=== PATIENT | male | born 1950 | race Caucasian/White ===

== ENCOUNTER → 2017-04-27 | Outpatient (CLI) | payer OTHER ==
[~2017-04-27] MED LIST: AMLO-104 PO; AMLO-99 PO; AMOX875T60 PO; ASPI-1441 PO; ASPI-1471 PO; ASPI81TA86 PO; ATEN-1 PO; ATOR20TA65 PO; BLOO-292; BLOO-960 MC; CARV25TA78 PO; DIOVAN HCT; GLIM2TAB43 PO; HYDR-2966 PO; IBUP-1671 PO; LANC-165; LEVO50TA86 PO; LOSA50TA72 PO; MECL-111 PO; NORVASC; OMEP-218 PO; SIMV-49 PO; SPIR25TA76 PO; VALS160T2 PO; ZOCOR
[2017-04-27 14:45] LABS: PLATELET COUNT, AUTOMATED 196 K/uL (150-450)
--- NOTE | 2017-04-28 08:15 | EKG ---
FACILITY: [facility] - [place] PATIENT NAME: ANAT FARRIS : [id number] MR: [id number] V: [id number] EXAM DATE: ORDERING PHYSICIAN: VIELKA LARSON TECHNOLOGIST: JANEL Test Reason : HYPERTENSION Blood Pressure : / mmHG Vent. Rate : 079 BPM Atrial Rate : 079 BPM P-R Int : 180 ms QRS Dur : 118 ms QT Int : 424 ms P-R-T Axes : 068 -57 083 degrees QTc Int : 486 ms Normal sinus rhythm Left axis deviation Left ventricular hypertrophy with QRS widening and repolarization abnormality Anteroseptal infarct (cited on or before 05-JUN-2016) Abnormal ECG When compared with ECG of 05-JUN-2016 09:46, No significant change was found Referred By: MARSHA Confirmed By:
== END ==
LOC: LAB 14:25
PROVIDERS: ATTEND Internal Medicine
DX: Z12.5 Encounter for screening for malignant neoplasm of prostate (principal); I16.0 Hypertensive urgency; I10 Essential (primary) hypertension; R73.9 Hyperglycemia, unspecified; R94.31 Abnormal electrocardiogram [ECG] [EKG]; I51.7 Cardiomegaly
CPT/HCPCS: 36415; 82040; 82247; 82310; 82374; 82435; 82465; 82565; 82947; 83036; 83718; 84075; 84132; 84153; 84155; 84295; 84443; 84450; 84460; 84478; 84520; 84550; 85025

== ENCOUNTER 2017-05-16 18:06 | Observation (INO) | payer OTHER ==
[~2017-05-16] VITALS: Ht 172.7 cm; Wt 89.4 kg
[~2017-05-16 18:06] MED LIST changes: -AMOX875T60 PO; -ASPI81TA86 PO
--- NOTE | 2017-05-16 18:19 | ER Report ---
History and Physical Time Seen By MD: 18:18 HPI/ROS CHIEF COMPLAINT: Left tooth pain, chest pain HISTORY OF PRESENT ILLNESS: 67-year-old male patient presents to emergency room with complaint of left lower molar pain. States this been going on for the past several days. States he's not been able to eat on the left side of his mouth. Patient states that he is also had a fever today up of 101. Starting at noon he developed chest pain. He states that the pain was substernal slightly to the right. He states that nothing seems to make the pain better or worse. He states that he's not had any nausea, vomiting or diarrhea. He denies having any shortness of breath. He states he is not taking any medication for his chest pain nor for his dental pain. REVIEW OF SYSTEMS: Respiratory: No cough, no dyspnea. Cardiovascular: As noted above Gastrointestinal: No vomiting, no abdominal pain. Musculoskeletal: No back pain. Allergies: Coded Allergies: codeine (Verified Adverse Reaction, Mild, DIZZINESS, 05/16/17) Home Meds Active Scripts Amlodipine Besylate (AMLODIPINE BESYLATE) 10 Mg Tablet, 1 TAB PO QDAY, #30 TAB 6 Refills Prov:VIELKA LARSON MD 05/12/17 Carvedilol (CARVEDILOL) 25 Mg Tablet, 1 TAB PO BID, #60 TAB 3 Refills Prov:VIELKA LARSON MD 04/30/17 Hydrochlorothiazide (HYDROCHLOROTHIAZIDE) 25 Mg Tablet, 1 TAB PO QDAY, #30 TAB 3 Refills Prov:VIELKA LARSON MD 04/30/17 True Metrix Glucose Test Strip (True Metrix Glucose Test Strip) 1 Each Strip, BOX DAILY, #1 5 Refills patient is to test his blood sugards once a day. patient is to choose his diabetic supplies of his choice. Prov:VIELKA LARSON MD 04/28/17 Lancets (Blood Lancets) 30 Gauge Each, BOX DAILY, #1 5 Refills patient to check his blood sugars once a day. patient to pick his diabetic supplies of his choice. Prov:VIELKA LARSON MD 04/28/17 Blood-Glucose Meter (BLOOD GLUCOSE METER) 1 Each Each, EACH MC DAILY, #1 Patient to check his blood sugars once a day Prov:VIELKA LARSON MD 04/28/17 Glimepiride (GLIMEPIRIDE) 2 Mg Tablet, 2 MG PO BID, #60 TAB 3 Refills Prov:VIELKA LARSON MD 04/28/17 Atorvastatin Calcium (ATORVASTATIN CALCIUM) 20 Mg Tablet, 1 TAB PO QDAY, #30 TAB 3 Refills Prov:VIELKA LARSON MD 04/28/17 Valsartan (Valsartan) 160 Mg Tablet, 160 MG PO BID, #60 TAB 3 Refills Prov:VIELKA LARSON MD 04/27/17 Past Medical/Surgical History Patient has a past medical history of hypertension, sinus problems. Patient denies any surgical history. Reviewed Nurses Notes: Yes Hx Smoking: No Smoking Status: Never Smoker Constitutional Vital Sign - Last 24 Hours 05/16/17 05/16/17 05/16/17 05/16/17 18:10 18:23 18:26 18:31 Temp 99.9 Pulse 108 107 107 Resp 16 9 B/P (MAP) 187/107 187/107 (133) Pulse Ox 91 90 O2 Delivery Room Air 05/16/17 05/16/17 05/16/17 05/16/17 18:36 18:39 18:41 18:42 Pulse 108 114 Resp 12 18 B/P (MAP) 190/106 (134) 163/106 (125) Pulse Ox 89 91 05/16/17 05/16/17 05/16/17 05/16/17 18:46 18:51 18:56 19:01 Pulse 110 119 121 Resp 21 26 14 14 Pulse Ox 90 90 05/16/17 05/16/17 05/16/17 05/16/17 19:30 19:36 19:41 19:56 Pulse 113 111 115 Resp 12 7 29 B/P (MAP) 149/84 (105) 05/16/17 05/16/17 05/16/17 05/16/17 20:00 20:11 20:26 20:30 Pulse 110 109 Resp 20 15 B/P (MAP) 153/90 (111) 148/85 (106) 05/16/17 20:41 Pulse 112 Resp 15 Intake and Output 05/16/17 05/16/17 05/17/17 15:00 23:00 07:00 Intake Total 100 ml Balance 100 ml Physical Exam General Appearance: The patient is alert, has no immediate need for airway protection and no current signs of toxicity. ENT: Tympanic membranes are pearly-alvarez, auditory canals are patent, mixed mucous membranes are moist. Patient does have swelling and erythema around the left lower molar, tooth #17. Respiratory: Chest is non tender, lungs are clear to auscultation. Cardiac: regular rate and rhythm Gastrointestinal: Abdomen is soft and non tender, no masses, bowel sounds normal. Musculoskeletal: Neck: Neck is supple and non tender. Extremities have full range of motion and are non tender. Skin: No rashes or lesions. DIFFERENTIAL DIAGNOSIS: After history and physical exam differential diagnosis was considered for chest pain including but not limited to myocardial ischemia, pericarditis pulmonary embolus, chest wall pain, pleural inflammation and pulmonary infectious causes. Included in differential is also dental abscess, dental pain. Medical Decision Making Data Points Result Diagram: 05/16/17 1823 05/16/17 1823 Laboratory Hematology Test 05/16/17 00:00 05/16/17 18:23 05/16/17 18:40 05/16/17 21:47 Magnesium Level 1.8 mg/dl (1.7-2.2) Red Blood Count 6.76 M/uL (4.00-5.60) Mean Corpuscular Volume 83.0 fL (80.0-96.0) Mean Corpuscular Hemoglobin 28.1 pg (26.0-33.0) Mean Corpuscular Hemoglobin Concent 33.9 g/dL (32.0-36.0) Red Cell Distribution Width 13.7 % (11.5-14.5) Mean Platelet Volume 9.9 fL (7.2-11.1) Neutrophils (%) (Auto) 93.9 % (39.4-72.5) Lymphocytes (%) (Auto) 2.8 % (17.6-49.6) Monocytes (%) (Auto) 2.3 % (4.1-12.4) Eosinophils (%) (Auto) 0.6 % (0.4-6.7) Basophils (%) (Auto) 0.4 % (0.3-1.4) Nucleated RBC Relative Count (auto) 0.6 /100WBC Neutrophils # (Auto) 15.6 K/uL (2.0-7.4) Lymphocytes # (Auto) 0.5 K/uL (1.3-3.6) Monocytes # (Auto) 0.4 K/uL (0.3-1.0) Eosinophils # (Auto) 0.1 K/uL (0.0-0.5) Basophils # (Auto) 0.1 K/uL (0.0-0.1) Nucleated RBC Absolute Count (auto) 0.09 K/uL Sodium Level 141 mmol/L (137-145) Potassium Level 2.6 mmol/L (3.5-5.0) Chloride Level 94 mmol/L (98-107) Carbon Dioxide Level 26 mmol/L (22-30) Blood Urea Nitrogen 21 mg/dl (9-21) Creatinine 1.50 mg/dl (0.66-1.25) Glomerular Filtration Rate Calc 46.7 Random Glucose 199 mg/dl (75-110) Calcium Level 10.3 mg/dl (8.4-10.2) Total Bilirubin 3.7 mg/dl (0.2-1.3) Aspartate Amino Transf (AST/SGOT) 26 U/L (0-35) Alanine Aminotransferase (ALT/SGPT) 43 U/L (0-56) Alkaline Phosphatase 99 U/L (0-126) Total Protein 9.1 gm/dl (6.3-8.2) Albumin 5.0 g/dl (3.5-5.0) Influenza Type A Antigen Negative (NEGATIVE) Influenza Type B Antigen Negative (NEGATIVE) Troponin I 0.086 ng/ml Chemistry Test 05/16/17 00:00 05/16/17 18:23 05/16/17 18:40 05/16/17 21:47 Magnesium Level 1.8 mg/dl (1.7-2.2) White Blood Count 16.7 k/uL (4.5-11.0) Red Blood Count 6.76 M/uL (4.00-5.60) Hemoglobin 19.0 g/dL (14.0-18.0) Hematocrit 56.1 % (42.0-52.0) Mean Corpuscular Volume 83.0 fL (80.0-96.0) Mean Corpuscular Hemoglobin 28.1 pg (26.0-33.0) Mean Corpuscular Hemoglobin Concent 33.9 g/dL (32.0-36.0) Red Cell Distribution Width 13.7 % (11.5-14.5) Platelet Count 248 K/uL (150-450) Mean Platelet Volume 9.9 fL (7.2-11.1) Neutrophils (%) (Auto) 93.9 % (39.4-72.5) Lymphocytes (%) (Auto) 2.8 % (17.6-49.6) Monocytes (%) (Auto) 2.3 % (4.1-12.4) Eosinophils (%) (Auto) 0.6 % (0.4-6.7) Basophils (%) (Auto) 0.4 % (0.3-1.4) Nucleated RBC Relative Count (auto) 0.6 /100WBC Neutrophils # (Auto) 15.6 K/uL (2.0-7.4) Lymphocytes # (Auto) 0.5 K/uL (1.3-3.6) Monocytes # (Auto) 0.4 K/uL (0.3-1.0) Eosinophils # (Auto) 0.1 K/uL (0.0-0.5) Basophils # (Auto) 0.1 K/uL (0.0-0.1) Nucleated RBC Absolute Count (auto) 0.09 K/uL Glomerular Filtration Rate Calc 46.7 Calcium Level 10.3 mg/dl (8.4-10.2) Total Bilirubin 3.7 mg/dl (0.2-1.3) Aspartate Amino Transf (AST/SGOT) 26 U/L (0-35) Alanine Aminotransferase (ALT/SGPT) 43 U/L (0-56) Alkaline Phosphatase 99 U/L (0-126) Total Protein 9.1 gm/dl (6.3-8.2) Albumin 5.0 g/dl (3.5-5.0) Influenza Type A Antigen Negative (NEGATIVE) Influenza Type B Antigen Negative (NEGATIVE) Troponin I 0.086 ng/ml EKG/Imaging EKG Interpretation 12 lead EKG: Rhythm: Sinus tachycardia, ventricular rate of 109 bpm. Jal: Left axis deviation QRS: normal ST segments: normal No marked difference when compared to EKG from 04/29/17. Imaging EXAMINATION: Chest 2 Views HISTORY: Chest pain. COMPARISON: 06/05/2016. FINDINGS: Bilateral nipple shadows are present, unchanged from prior. The lungs are clear. No focal consolidation or pleural effusion. No pneumothorax. Normal heart size and pulmonary vascularity. No acute osseous findings in the chest. Scattered degenerative changes along the spine. IMPRESSION: No evidence of acute cardiopulmonary disease. Report Dictated By: Juan Luis Nation MD at 05/16/2017 7:26 PM Report E-Signed By: Juan Luis Nation MD at 05/16/2017 7:28 PM ED Course/Re-evaluation ED Course Patient was admitted and examined, history and physical were obtained. Differential diagnoses were considered. On examination patient does have swelling and erythema around the left lower molar. A CBC, CMP, troponin, EKG, chest x-ray were done. Chest x-ray was unremarkable. EKG was unchanged when compared with April 29. Troponin was 0.023. Patient did have a potassium that was 2.6. We did give him a 20 mEq K rider here in the emergency room. That took one hour and after that we did go ahead and repeat his troponin. At that time his troponin had gone up to 0.086. I discussed the case with Dr. Arce, hospitalist who agreed to accept the patient for admission. With the patient who verbalized understanding and agreement. Decision to Disposition Date: May 16, 2017 Decision to Disposition Time: 22:44 Depart Departure Latest Vital Signs Vital Signs Date Time Temp Pulse Resp B/P (MAP) Pulse Ox O2 Delivery O2 Flow Rate FiO2 05/16/17 20:41 112 15 05/16/17 20:30 148/85 (106) 05/16/17 18:51 90 05/16/17 18:10 99.9 Room Air Impression: Primary Impression: Chest pain Additional Impression: Elevated troponin I level Condition: Condition Unchanged Disposition: Admitted from ER Referrals: VIELKA LARSON MD (PCP) Problem Qualifiers Primary Impression: Chest pain Chest pain type: other chest pain Qualified Codes: R07.89 - Other chest pain VALENTINE GOLD May 16, 2017 18:19
[2017-05-16] MEDS ORDERED: ASPIRIN 81 MG CHEW PO ONE (18:30)
[2017-05-16 18:38] LABS: PLATELET COUNT, AUTOMATED 248 K/uL (150-450)
--- NOTE | 2017-05-16 18:45 | EKG ---
FACILITY: [facility] PATIENT NAME: ANAT FARRIS : [id number] MR: [id number] V: [id number] EXAM DATE: ORDERING PHYSICIAN: VALENTINE GOLD TECHNOLOGIST: ROCIO Test Reason : CP Blood Pressure : / mmHG Vent. Rate : 109 BPM Atrial Rate : 109 BPM P-R Int : 128 ms QRS Dur : 120 ms QT Int : 402 ms P-R-T Axes : 052 -66 096 degrees QTc Int : 541 ms Sinus tachycardia Left axis deviation Left ventricular hypertrophy with QRS widening and repolarization abnormality Cannot rule out Septal infarct (cited on or before 05-JUN-2016) Abnormal ECG When compared with ECG of 27-APR-2017 15:01, ST now depressed in Lateral leads QT has lengthened Confirmed by ANAT HADLEY ([id number]) on 05/17/2017 12:31:56 AM Referred By: NADYA Confirmed By:ANAT HADLEY
--- NOTE | 2017-05-16 19:31 | RADIOLOGY IMAGING REPORT ---
FACILITY: [facility] PATIENT NAME: Pete Colvin : 1950 MR: [id number] V: [id number] EXAM DATE: ORDERING PHYSICIAN: VALENTINE GOLD TECHNOLOGIST: Location: [facility] Patient: Pete Colvin : 1950 Visit/Account:[id number] Date of Sevice: 05/16/2017 EXAMINATION: Chest 2 Views HISTORY: Chest pain. COMPARISON: 06/05/2016. FINDINGS: Bilateral nipple shadows are present, unchanged from prior. The lungs are clear. No focal consolidati on or pleural effusion. No pneumothorax. Normal heart size and pulmonary vascularity. No acute osseous findings in the chest. Scattered degenerative changes along the spine. IMPRESSION: No evidence of acute cardiopulmonary disease. Report Dictated By: Juan Luis Nation MD at 05/16/2017 7:26 PM Report E-Signed By: Juan Luis Nation MD at 05/16/2017 7:28 PM [id number]
[2017-05-16] MEDS ORDERED: KCL (*) 20 MEQ/100 ML PREMIX 100 ML IV ONE (20:15)
[2017-05-16] MEDS ORDERED: AMOXICILLIN 500 MG CAP PO ONE (21:25)
[2017-05-17] VITALS (9 sets, daily range): BP systolic 109–163; BP diastolic 66–91; Ht 172.7 cm; Wt 89.4 kg
[2017-05-17] MEDS ORDERED: INFLUENZA VIRUS VAC 0.5 ML SYR IM ONLY ONE (00:45)
[2017-05-17] MEDS ORDERED: INSULIN HUM LISPRO 100 UN/ML 3 ML VIAL SUBQ PRN (00:45)
--- NOTE | 2017-05-17 01:07 | History & Physical ---
History of Present Illness Chief Complaint Toothache History of Present Illness This patient presented to the emergency room primarily complaining of a toothache. He was previously diagnosed with an abscessed tooth and placed on amoxicillin. He reports that he is scheduled to have this tooth removed, but not until his blood pressure is under better control. He reports that his systolic BP was over 240mmHg. He has been started on blood pressure medications , and is doing better. However, he has had a cough ever since starting the medication. This is what led to him reporting chest pain in the emergency department. He reports a raw feeling in his chest when he has his coughing episodes. History Problems: (1) Diabetes mellitus, type 2 (2) Hypertension (3) CKD (chronic kidney disease), stage III (4) Hyperlipidemia Home Meds Active Scripts Amlodipine Besylate (AMLODIPINE BESYLATE) 10 Mg Tablet, 1 TAB PO QDAY, #30 TAB 6 Refills Prov:VIELKA PAYAN MD 05/12/17 Carvedilol (CARVEDILOL) 25 Mg Tablet, 1 TAB PO BID, #60 TAB 3 Refills Prov:VIELKA PAYAN MD 04/30/17 Hydrochlorothiazide (HYDROCHLOROTHIAZIDE) 25 Mg Tablet, 1 TAB PO QDAY, #30 TAB 3 Refills Prov:VIELKA PAYAN MD 04/30/17 True Metrix Glucose Test Strip (True Metrix Glucose Test Strip) 1 Each Strip, BOX DAILY, #1 5 Refills patient is to test his blood sugards once a day. patient is to choose his diabetic supplies of his choice. Prov:VIELKA PAYAN MD 04/28/17 Lancets (Blood Lancets) 30 Gauge Each, BOX DAILY, #1 5 Refills patient to check his blood sugars once a day. patient to pick his diabetic supplies of his choice. Prov:VIELKA PAYAN MD 04/28/17 Blood-Glucose Meter (BLOOD GLUCOSE METER) 1 Each Each, EACH MC DAILY, #1 Patient to check his blood sugars once a day Prov:VIELKA PAYAN MD 04/28/17 Glimepiride (GLIMEPIRIDE) 2 Mg Tablet, 2 MG PO BID, #60 TAB 3 Refills Prov:VIELKA PAYAN MD 04/28/17 Atorvastatin Calcium (ATORVASTATIN CALCIUM) 20 Mg Tablet, 1 TAB PO QDAY, #30 TAB 3 Refills Prov:VIELKA PAYAN MD 04/28/17 Valsartan (Valsartan) 160 Mg Tablet, 160 MG PO BID, #60 TAB 3 Refills Prov:VIELKA PAYAN MD 04/27/17 Allergies: Coded Allergies: codeine (Verified Adverse Reaction, Mild, DIZZINESS, 05/16/17) Patient History: FH: lung cancer FATHER Stroke MOTHER Hx Smoking: No Smoking Status: Never Smoker Caffeine Intake: Coffee Caffeine/Cups Per Day: 1 cup/ day Hx Alcohol Use: Yes Hx Substance Use Disorder: No Review of Systems All Systems Reviewed/Normal: Yes, Except as Noted Cardiovascular: Chest Pain Respiratory: Cough Exam Vital Signs Vital Signs Date Time Temp Pulse Resp B/P (MAP) Pulse Ox O2 Delivery O2 Flow Rate FiO2 05/17/17 00:21 97.9 100 16 157/91 (113) 91 Room Air Neuro: No Gross deficits Eyes: PERRLA Cardiovascular: Regular Rate and Rhythm Respiratory: Clear to Auscultation GI: Abd Soft and Non-Tender Extremities: No Edema Integumentary: No Cyanosis Medical Decision Making Data Points Result Diagram: 05/16/17 1823 05/16/17 182 Item Value Date Time Troponin I 0.023 ng/ml 05/16/171822 Troponin I 0.086 ng/ml 05/16/17 2147 EKG / Imaging EKG Interpretation EKG reviewed. Imaging Chest x-ray reviewed. Assessment and Plan Problems: (1) Elevated troponin I level Status: Acute Assessment & Plan: His second troponin in the emergency department was found to be in equivocal range. His EKG does not show any acute changes. He does report chest pain, but only during his coughing episodes. I suspect his troponin elevation may be secondary to chronic renal failure. We will repeat a troponin and plan to discharge if it remains unchanged. He is already scheduled for an echocardiogram through Dr. Payan's office, but he may also benefit from an outpatient stress study. (2) Tooth abscess Assessment & Plan: We will continue the amoxicillin as prescribed by his dentist. (3) Hypokalemia Assessment & Plan: He is scheduled to receive a K-ridder and a repeat potassium is ordered for the morning. (4) Essential hypertension Assessment & Plan: He apparently had severe range hypertension and was started on amlodipine, carvedilol, hydrochlorothiazide, and valsartan. He reports a cough since starting on these medications. I suspect this is secondary to the valsartan. We have discontinued this and also held his hydrochlorothiazide secondary to hypokalemia. (5) Diabetes mellitus, type 2 Assessment & Plan: He was recently diagnosed and started on glimepiride. We have also covered him with sliding scale level #2. (6) CKD (chronic kidney disease), stage III Copies to: VIELKA PAYAN MD Venous Thromboembolism Antithrombotics Is Pt On Any Antithrombotics?: No Exam Sepsis Risk: Possible Sepsis Risk ANAT HADLEY DO May 17, 2017 01:07
[2017-05-17] MEDS ORDERED: NS(*) 0.9% 250 ML BAG 250 ML ONE (01:15)
[2017-05-17] MEDS: KCL (*) 20 MEQ/100 ML PREMIX 100 ML IV SCH ×2 (01:19→03:44)
[2017-05-17 07:16] LABS: PLATELET COUNT, AUTOMATED 183 K/uL (150-450)
[2017-05-17] MEDS ORDERED: KCL (*) 20 MEQ/100 ML PREMIX 100 ML IV SCH (08:35)
--- NOTE | 2017-05-17 08:49 | Hospitalist Progress Note ---
Subjective Progress Notes Subjective This patient was admitted for an elevated troponin. He has not had any chest pain other than with cough. Patient Complains of: Cardiovascular: Chest Pain Respiratory: Cough Physical Exam Vital Signs Date Time Temp Pulse Resp B/P (MAP) Pulse Ox O2 Delivery O2 Flow Rate FiO2 05/17/17 07:39 99.7 96 16 143/82 (102) 89 Nasal Cannula 1.0 Cardiovascular: Regular Rate and Rhythm Respiratory: Clear to Auscultation Result Diagram: 05/17/1764805/17/17648 Item Value Date Time Troponin I 0.626 ng/ml *H 05/17/17648 Assessment and Plan Problems: (1) Elevated troponin I level Status: Acute Assessment & Plan: His troponin has been elevated, but he has been largely asymptomatic with this. His EKG does not show any acute changes. He does report chest pain, but only during his coughing episodes. I suspect his troponin elevation may be secondary to chronic renal failure. A repeat troponin is ordered for later today. Aspirin has been added. He is already scheduled for an echocardiogram through Dr. Payan's office, but he may also benefit from an outpatient stress study. (2) Tooth abscess Assessment & Plan: We will continue the amoxicillin as prescribed by his dentist. (3) Hypokalemia Assessment & Plan: He is scheduled to receive a K-ridder and a repeat potassium is ordered for the morning. (4) Essential hypertension Assessment & Plan: He apparently had severe range hypertension and was started on amlodipine, carvedilol, hydrochlorothiazide, and valsartan. He reports a cough since starting on these medications. I suspect this is secondary to the valsartan. We have discontinued this and also held his hydrochlorothiazide secondary to hypokalemia. (5) Diabetes mellitus, type 2 Assessment & Plan: He was recently diagnosed and started on glimepiride. We have also covered him with sliding scale level #2. (6) CKD (chronic kidney disease), stage III Exam Sepsis Risk: Sepsis Risk ANAT HADLEY DO May 17, 2017 08:49
[2017-05-17] MEDS ORDERED: amLODIPine BESYL(*) 5 MG TAB PO SCH (09:00)
[2017-05-17] MEDS: ATORVASTATIN 10 MG TAB PO SCH (09:09)
[2017-05-17] MEDS: ASPIRIN 81 MG ENTERIC COATED PO SCH (09:09)
[2017-05-17] MEDS: CARVEDILOL 25 MG TABLET PO SCH ×2 (09:10→20:59)
[2017-05-17] MEDS: GLIMEPIRIDE 2 MG TAB PO SCH ×2 (09:10→17:16)
[2017-05-17] MEDS: AMOXICILLIN 875 MG TAB PO SCH ×2 (09:49→20:59)
--- NOTE | 2017-05-17 10:56 | EKG ---
FACILITY: [facility] [place] PATIENT NAME: ANAT FARRIS : [id number] MR: [id number] V: [id number] EXAM DATE: ORDERING PHYSICIAN: MOISÉS MCKENZIE TECHNOLOGIST: Test Reason : Blood Pressure : / mmHG Vent. Rate : 094 BPM Atrial Rate : 083 BPM P-R Int : 202 ms QRS Dur : 120 ms QT Int : 438 ms P-R-T Axes : 035 034 182 degrees QTc Int : 547 ms Sinus rhythm with sinus arrhythmia with PACs Septal infarct , age undetermined ST and T wave abnormality, consider inferior ischemia Abnormal ECG Confirmed by MOISÉS MO ([id number]) on 05/17/2017 9:46:39 PM Referred By: Confirmed By:MOISÉS MO
[2017-05-17] MEDS ORDERED: NS(*) 0.9% 500 ML BAG 500 ML ONE (11:12)
[2017-05-17] MEDS ORDERED: POTASSIUM CHL 20 MEQ TABCR PO ONE (17:45)
--- NOTE | 2017-05-17 18:55 | Hospitalist Progress Note ---
Subjective Progress Notes Subjective The patient denies chest pain. States it is better today. Physical Exam Vital Signs Date Time Temp Pulse Resp B/P (MAP) Pulse Ox O2 Delivery O2 Flow Rate FiO2 05/17/17 15:45 98.9 80 24 125/75 (92) 91 Nasal Cannula 3.0 Intake and Output 05/18/17 07:00 Intake Total 810 ml Balance 810 ml Intake Oral 360 ml IV Total 450 ml # Voids 2 # Bowel Movements 1 General Appearance: Alert, Awake, No Acute Distress, Afebrile Neuro: No Gross deficits Cardiovascular: Other (Irregular.) Respiratory: No Respiratory Distress, Clear to Auscultation GI: Soft and Non-Tender Extremities: Warm, Perfused Integumentary: Skin Intact without Lesion / Mass Psych: Appropriate Mood & Affect Result Diagram: 05/17/1749 05/17/17648 Assessment and Plan Problems: (1) Elevated troponin I level Status: Acute Assessment & Plan: His troponin was equivocal on admission. It has increased to 0.6 today. His EKG does show ST-Twave changes compared to an EKG from 2015. He did have chest pain, but apparently only during his coughing episodes. This is improved. As his troponin was initially not elevated, the increase is worrisome. Discussed with Dr. Sim, cardiology at [facility]. He felt that the elevation could be due to his high BPs on admission. He recommended ASA, beta chad and ARB. He did not believe the patient needed to be anticoagulated at this point. He also recommended echo now and Lexiscan myoview as an outpatient once he is discharged. He felt that if the troponin increased further or the echo showed wall motion abnormality or decreased EF, the patient should be considered for transfer and possible cardiac catheterization. A repeat troponin is ordered for later today. Echocardiogram has been ordered this am. Aspirin was added on 04/18. The patient is already on a beta chad (carvedilol) . Will stop the amlodipine and restart valsartan. (2) Tooth abscess Assessment & Plan: We will continue the amoxicillin as prescribed by his dentist. (3) Hypokalemia Assessment & Plan: He is received several K-riders and is now on oral potassium. (4) Essential hypertension Assessment & Plan: He apparently had severe range hypertension and was started on amlodipine, carvedilol, hydrochlorothiazide, and valsartan. He reported a cough since starting on these medications. This may be due to valsartan. The HCTZ was stopped. Will restart valsartan per cardiology recommendations, but may need to stop it again if he continues to cough. (5) Diabetes mellitus, type 2 Assessment & Plan: He was recently diagnosed and started on glimepiride. We have also covered him with sliding scale level #2. (6) CKD (chronic kidney disease), stage III Status: Chronic Assessment & Plan: Likely related to uncontrolled HTN. Time Spent on Plan of Care: < 30 min Exam Sepsis Risk: Sepsis Risk MOISÉS MCKENZIE MD May 17, 2017 18:55
[2017-05-18 04:31] VITALS: BP 106/68
[2017-05-18 06:26] LABS: PLATELET COUNT, AUTOMATED 134 K/uL (150-450)
[2017-05-18 07:27] VITALS: BP 127/78
[2017-05-18] MEDS: GLIMEPIRIDE 2 MG TAB PO SCH ×2 (07:40→17:21)
[2017-05-18] MEDS ORDERED: LOSARTAN POTASSIUM 50 MG TAB PO SCH (09:00)
[2017-05-18] MEDS ORDERED: VALSARTAN 80 MG TAB PO SCH (09:00)
[2017-05-18] MEDS: ASPIRIN 81 MG ENTERIC COATED PO SCH (10:44)
[2017-05-18] MEDS: ATORVASTATIN 10 MG TAB PO SCH (10:44)
[2017-05-18] MEDS: CARVEDILOL 25 MG TABLET PO SCH (10:45)
[2017-05-18] MEDS: AMOXICILLIN 875 MG TAB PO SCH (10:45)
[2017-05-18 11:27] VITALS: BP 106/62
--- NOTE | 2017-05-18 13:40 | RADIOLOGY IMAGING REPORT ---
FACILITY: [facility] - [place] PATIENT NAME: Pete Colvin : 1950 MR: [id number] V: [id number] EXAM DATE: ORDERING PHYSICIAN: MOISÉS MCKENZIE TECHNOLOGIST: Location: [facility] [place] Patient: Pete Colvin : 1950 Visit/Account:[id number] Date of Sevice: 05/18/2017 ARTERIAL RENAL DUPLEX DOPPLER HISTORY: HTN, severe COMPARISON: None. FINDINGS: Kidneys: Right kidney- 11.3 x 5.5 x 5.8 cm with normal parenchymal thickness and echogenicity. No ultrasound evident renal mass lesion or stone. Simple cyst measuring 3 cm is seen arising from the lower pole. Renal Doppler waveforms are within normal limits. Resistive indices are within normal limits. Ther e is no evidence of renal artery stenosis. The renal vein is patent. Left kidney- 11.7 x 5.6 x 5.5 with normal parenchymal thickness and echogenicity. No ultrasound evid ent renal mass lesion or stone. Two small parapelvic cyst measuring less than a centimeter noted wit hin the superior pole. Renal Doppler waveforms are within normal limits. Resistive indices are withi n normal limits. There is no evidence of renal artery stenosis. The renal vein is patent. Uniform and symmetric blood flow in each kidney by Doppler ultrasound. Hydronephrosis: None. Bladder: Morphologically unremarkable. Bilateral ureteric jets visualized. . Abdominal aorta and IVC: Patent by Doppler ultrasound. IMPRESSION: Renal ultrasound is within normal limits. Renal Dopplers are within normal limits, there is no evidence of renal artery stenosis by ultrasound criteria Report Dictated By: Abdulaziz Link at 05/18/2017 1:22 PM Report E-Signed By: Abdulaziz Link at 05/18/2017 1:36 PM WSN:[id number]
[2017-05-18 15:35] VITALS: BP 126/75
[2017-05-18] MEDS ORDERED: ASPI81TA86 PO (16:14)
[2017-05-18] MEDS ORDERED: VALS160T2 PO (16:14)
[2017-05-18] MEDS ORDERED: GLIM2TAB43 PO (16:30)
[2017-05-18] MEDS ORDERED: AMOX875T60 PO (16:42)
--- NOTE | 2017-05-18 16:44 | Hospitalist Depart ---
Discharge Summary Reason for Hosp/Final Diag: (1) Elevated troponin I level Status: Acute Hospital Course & Plan: His troponin was equivocal on admission. It has increased to 0.6 today. His EKG did show ST-T wave changes compared to an EKG from 2015. He did have chest pain, but apparently only during his coughing episodes. This is improved. As his troponin was initially not elevated, the increase is worrisome. Discussed with Dr. Sim, cardiology at [facility]. He felt that the elevation could be due to his high BPs on admission. He recommended ASA , beta chad and ARB. He did not believe the patient needed to be anticoagulated at this point. He also recommended echo now and Lexiscan myoview as an outpatient once he is discharged. The echo, per the tech, showed a preserved EF without wall motion abnormalities. Aspirin was added on 04/18. The patient is already on a beta chad (carvedilol) and the Valsartan was restarted as mentioned below. (2) Tooth abscess Hospital Course & Plan: We will continue the amoxicillin as prescribed by his dentist. (3) Hypokalemia Status: Acute Hospital Course & Plan: He received several K-riders and oral potassium. Potassium improving and he is off the HCTZ. BMP in a few days. (4) Essential hypertension Hospital Course & Plan: He apparently had severe range hypertension and was started on amlodipine, carvedilol, hydrochlorothiazide, and valsartan. He reported a cough since starting on these medications. This may be due to valsartan. The HCTZ was stopped. Will restart valsartan only at 80mg a day per cardiology recommendations, but may need to stop it again if he continues to cough. He is to continue carvedilol. (5) Diabetes mellitus, type 2 Hospital Course & Plan: He was recently diagnosed and started on glimepiride. His glucose is consistently in 70's to 80's. With the CKD, would recommend he take glimepiride daily rather that bid. (6) CKD (chronic kidney disease), stage III Status: Chronic Hospital Course & Plan: Likely related to uncontrolled HTN. He is at baseline. BMP in a few days. Departure Weight (Pounds): 197 Result Diagram: 05/18/17 0554 05/18/17553 Item Value Date Time Troponin I 0.148 ng/ml *H 05/18/17 1208 Whole Blood Glucose 158 mg/DL H 05/18/17 1132 Troponin I 0.245 ng/ml *H 05/18/17 0554 Troponin I 0.485 ng/ml *H 05/17/17 1421 Creatinine 1.40 mg/dl H 05/18/17 0554 Troponin I 0.626 ng/ml *H 05/17/17 0649 Troponin I 0.086 ng/ml 05/16/17 2147 Troponin I 0.023 ng/ml 05/16/17 1823 Potassium Level 2.6 mmol/L *L 05/16/17 1823 Potassium Level 2.8 mmol/L *L 05/17/17 0649 Creatinine 1.40 mg/dl H 05/17/17 0649 Creatinine 1.50 mg/dl H 05/16/17 1823 Calcium Level 10.3 mg/dl H 05/16/17 1823 Total Bilirubin 3.7 mg/dl H 05/16/17 1823 Aspartate Amino Transf (AST/SGOT) 26 U/L 05/16/17 1823 Alanine Aminotransferase (ALT/SGPT) 43 U/L 05/16/17 1823 Alkaline Phosphatase 99 U/L 05/16/17 1823 Magnesium Level 1.8 mg/dl 05/16/17 0000 White Blood Count 16.7 k/uL H 05/16/17 1823 White Blood Count 17.5 k/uL H 05/17/17 0649 White Blood Count 7.9 k/uL 05/18/17 0554 Hemoglobin 19.0 g/dL H 05/16/17 1823 Hemoglobin 15.9 g/dL 05/17/17 0649 Hemoglobin 15.2 g/dL 05/18/17 0554 Platelet Count 134 K/uL L 05/18/17 0554 Platelet Count 183 K/uL 05/17/17 0649 Platelet Count 248 K/uL 05/16/17 1823 Influenza Type A Antigen Negative 05/16/17 1840 Influenza Type B Antigen Negative 05/16/17 1840 Imaging 05/18/17 Renal Artery Duplex - Renal ultrasound is within normal limits. Renal Dopplers are within normal limits, there is no evidence of renal artery stenosis by ultrasound criteria 05/17/17 Echo - results pending 05/16/17 CXR - No evidence of acute cardiopulmonary disease. EKG Vent. Rate : 094 BPM Atrial Rate : 083 BPM P-R Int : 202 ms QRS Dur : 120 ms QT Int : 438 ms P-R-T Axes : 035 034 182 degrees QTc Int : 547 ms Sinus rhythm with sinus arrhythmia with PACs Septal infarct , age undetermined ST and T wave abnormality, consider inferior ischemia Abnormal ECG Confirmed by MOISÉS MO ([id number]) on 05/17/2017 9:46:39 PM Vent. Rate : 109 BPM Atrial Rate : 109 BPM P-R Int : 128 ms QRS Dur : 120 ms QT Int : 402 ms P-R-T Axes : 052 -66 096 degrees QTc Int : 541 ms Sinus tachycardia Left axis deviation Left ventricular hypertrophy with QRS widening and repolarization abnormality Cannot rule out Septal infarct (cited on or before 05-JUN-2016) Abnormal ECG When compared with ECG of 27-APR-2017 15:01, ST now depressed in Lateral leads QT has lengthened Confirmed by ANAT HADLEY ([id number]) on 05/17/2017 12:31:56 AM Condition: Improved Discharge: Home Discharge Instructions Home Meds Active Scripts Glimepiride (GLIMEPIRIDE) 2 Mg Tablet, 2 MG PO DAILY, #60 TAB 3 Refills Prov:SELWYN MANCILLA MD 05/18/17 Aspirin (ASPIRIN EC) 81 Mg Tablet.dr, 81 MG PO QDAY for 90 Days, Prov:SELWYN MANCILLA MD 05/18/17 Valsartan (Valsartan) 160 Mg Tablet, 80 MG PO DAILY, #60 TAB 3 Refills Prov:SELWYN MANCILLA MD 05/18/17 Carvedilol (CARVEDILOL) 25 Mg Tablet, 1 TAB PO BID, #60 TAB 3 Refills Prov:VIELKA PAYAN MD 04/30/17 True Metrix Glucose Test Strip (True Metrix Glucose Test Strip) 1 Each Strip, BOX DAILY, #1 5 Refills patient is to test his blood sugards once a day. patient is to choose his diabetic supplies of his choice. Prov:VIELKA PAYAN MD 04/28/17 Lancets (Blood Lancets) 30 Gauge Each, BOX DAILY, #1 5 Refills patient to check his blood sugars once a day. patient to pick his diabetic supplies of his choice. Prov:VIELKA PAYAN MD 04/28/17 Blood-Glucose Meter (BLOOD GLUCOSE METER) 1 Each Each, EACH MC DAILY, #1 Patient to check his blood sugars once a day Prov:VIELKA PAYAN MD 04/28/17 Atorvastatin Calcium (ATORVASTATIN CALCIUM) 20 Mg Tablet, 1 TAB PO QDAY, #30 TAB 3 Refills Prov:VIELKA PAYAN MD 04/28/17 Reported Medications Amoxicillin (AMOXICILLIN) 875 Mg Tablet, 1 TAB PO Q12H, TAB 05/18/17 Discontinued Scripts Amlodipine Besylate (AMLODIPINE BESYLATE) 10 Mg Tablet, 1 TAB PO QDAY, #30 TAB 6 Refills Prov:VIELKA PAYAN MD 05/12/17 Hydrochlorothiazide (HYDROCHLOROTHIAZIDE) 25 Mg Tablet, 1 TAB PO QDAY, #30 TAB 3 Refills Prov:VIELKA PAYAN MD 04/30/17 Diet: Regular Activity: As Tolerated Special Instructions: Follow up with Dr. Payan in 1-2 weeks to check blood pressure and Lexiscan. Lexiscan Myoview to follow up the elevated Troponin. BMP/Troponin in 2-3 days to follow kidney function and abnormal Troponin test Go to the ER for chest pain, or shortness of breath. Copies to: VIELKA PAYAN MD Venous Thromboembolism Antithrombotics Is Pt On Any Antithrombotics?: No SELWYN MANCILLA MD May 18, 2017 16:44
[2017-05-19] MEDS ORDERED: AMOX875T60 PO (08:59)
--- NOTE | 2017-05-19 20:42 | RADIOLOGY IMAGING REPORT ---
FACILITY: [facility] [place]IENT NAME: ANAT FARRIS : [id number] MR: [id number] V: [id number] EXAM DATE: [id number] ORDERING PHYSICIAN: MOISÉS MCKENZIE TECHNOLOGIST: Jane Santos EXAMINATION:TWO-DIMENSIONAL ECHOCARDIOGRAPH REASON:ELEVATED TROPONIN. 2D Measurements (normal values in centimeters) LV endLV endRV endVent.LV PostAorticLeftPercent DiastolicSystolicDiastolicSeptumWallRootAtriumShortening (3.5-5.7)(0.9-2.6)(0.6-1.1)(0.6-1.1)(2.0-3.7)(1.9-4.0)(25-35%) [id number]% STROKE VOLUME: 44 mL ESTIMATED EJECTION FRACTION:61% PARASTERNAL LONG AXIS: Overall left ventricular systolic function does appear to be normal. There is mild concentric left ventricular thickening, borderline left atrial enlargement. No evidence for any outflow tract obstruction. The aortic valve and mitral valve area both appear to open normally. The right ventricle appears to contract normally. It is mildly increased in size. Color examination of the aortic valve was unremarkable. Color examination of the mitral valve revealed a trace of mitral insufficiency. PARASTERNAL SHORT AXIS: Overall left ventricular systolic function is normal. No wall motion abnormalities are noted. There is mild concentric left ventricular thickening present. The aortic valve was trileaflet in configuration with mild aortic sclerosis but no stenosis. Color examination of the tricuspid valve reveals a trace of tricuspid insufficiency. Tricuspid regurgitation V-max is measured at 1.27 m/sec. Color examination of the pulmonic valve was unremarkable. APICAL FOUR AND TWO CHAMBER: Normal left ventricular ejection fraction with no wall motion abnormalities. Right ventricle appears to contract normally with a TAPSE of 2.3. Left atrial and right atrial volumes measure within normal range at 30 and 16 ml/m2. The aortic valve area and mitral valve area both measure within normal range at 5.6 and 4.9 cm2 respectively. Trace of mitral and tricuspid insufficiency is noted. SUBCOSTAL VIEW: No pericardial effusion is noted. No atrial septal or ventricular septal defects were appreciated. Doppler examination of the mitral valve in diastole does reveal a normal pattern but there is reversal with Valsalva suggesting decreased diastolic function. OVERALL IMPRESSION: 1. Normal left ventricular ejection fraction of 61% with a grade 2/4 decrease in diastolic function. 2. Mild right ventricular enlargement and mild concentric left ventricular thickening but no evidence for any outflow tract obstruction. 3. No wall motion abnormalities noted. 4. Trileaflet aortic valve with mild aortic sclerosis but no stenosis and no insufficiency was noted. 5. A trace of mitral and tricuspid insufficiency with estimated right ventricular systolic pressure within normal ranges at 9 mmHg. Dictated by: Екатерина Dailey M.D. on 05/18/2017 at 20:06 Transcribed by: JOHN on 05/19/2017 at 15:08 Approved by: Екатерина Dailey M.D. on 05/19/2017 at 20:40 [facility]
== END 2017-05-18 16:44 | disposition home or self-care (01) ==
LOC: ER 18:22 → MED 23:02 → INTOOBSV 23:02
PROVIDERS: ADMIT Family Medicine; ATTEND Family Medicine
DX: K04.7 Periapical abscess without sinus (principal); R07.89 Other chest pain; R79.89 Other specified abnormal findings of blood chemistry; R94.31 Abnormal electrocardiogram [ECG] [EKG]; E87.6 Hypokalemia; E11.9 Type 2 diabetes mellitus without complications; I12.9 Hypertensive chronic kidney disease with stage 1 through stage 4 chronic kidney disease, or unspecified chronic kidney disease; E11.22 Type 2 diabetes mellitus with diabetic chronic kidney disease; N18.3 Chronic kidney disease, stage 3 (moderate); Z23 Encounter for immunization
CPT/HCPCS: 36415; 36416; 71020; 82088; 82384; 82948; 83735; 84244; 84484; 85025; 87502; 90471; 90674; 93005; 93306; 93975; 96365; 96366; 96372; 99285; G0378; J1815; J3480; J7040; 82040; 82247; 82310; 82374; 82435; 82565; 82947; 84075; 84132; 84155; 84295; 84450; 84460; 84520

== ENCOUNTER → 2017-05-19 | Outpatient (CLI) | payer OTHER ==
[2017-05-17 14:29] VITALS: BMI 29.9
[~2017-05-19] MED LIST changes: +AMOX875T60 PO; +ASPI81TA86 PO
== END ==
LOC: LAB 08:12
PROVIDERS: ATTEND Internal Medicine
DX: I10 Essential (primary) hypertension (principal); R94.31 Abnormal electrocardiogram [ECG] [EKG]; R79.89 Other specified abnormal findings of blood chemistry
CPT/HCPCS: 36415; 82310; 82374; 82435; 82565; 82947; 84132; 84295; 84484; 84520

== ENCOUNTER → 2017-05-20 | Outpatient (CLI) | payer OTHER ==
[2017-05-17 14:29] VITALS: BMI 29.9
[~2017-05-20] MED LIST changes: +REGADENOSON 0.4 MG/5 ML SYR ONE
--- NOTE | 2017-05-21 07:36 | RADIOLOGY IMAGING REPORT ---
FACILITY: [facility] - [place] PATIENT NAME: Pete Colvin : 1950 MR: [id number] V: [id number] EXAM DATE: ORDERING PHYSICIAN: SELWYN MANCILLA TECHNOLOGIST: Location: [facility] - [place] Patient: Pete Colvin : 1950 Visit/Account:[id number] Date of Sevice: 05/20/2017 EXAMINATION: Single isotope SPECT imaging with regadenoson infusion and gated SPECT imaging. DATE OF EXAMINATION: 05/20/2017. DATE OF INTERPRETATION: 05/21/2017. REQUESTING PHYSICIAN: SELWYN MANCILLA. INDICATION: The patient is a 67-year-old male evaluated for elevated troponin and ECG changes. PROCEDURE: After informed consent the patient received an intravenous injection of 12.9 mCi of Tc-99 m sestamibi followed at an appropriate time interval by rest imaging. The patient then subsequently received an intravenous infusion of 0.4 mg of regadenoson per protocol without complication. Resting heart rate was 72 bpm with a peak heart rate of 90 bpm. Blood pressure at rest was 138 / 106 and fo llowing infusion was 162 / 100. Baseline EKG demonstrates incomplete left bundle branch block. Ther e were no new EKG changes of ischemia following infusion. Symptoms were nonspecific. The patient th en received an intravenous injection of 29.9 mCi of Tc-99m sestamibi followed by stress imaging. RAW DATA: Examination of the summed raw data revealed a good quality study. Evidence of diaphragmati c attenuation noted. MYOCARDIAL PERFUSION: The tomographic images demonstrate inferior defect at rest and stress, improve d dramatically with prone imaging but still small, mild residual inferoapical defect.. GATED IMAGES: The gated images demonstrate normal wall motion, ejection fraction 60%. IMPRESSION: 1. Good quality study, diaphragmatic attenuation noted. 2. Probably normal myocardial perfusion scan. Small, mild inferoapical defect may be consistent with prior distal vessel disease but does not appear to be reversible ischemia. 3. Normal LV systolic function; LVEF 60%. 4. Based on the results of this exam, the patient appears to be at low risk for future cardiovascular events but remains intermediate risk due to inability to exercise. Report Dictated By: Amado Stoddard at 05/21/2017 7:25 AM Report E-Signed By: Amado Stoddard at 05/21/2017 7:32 AM WSN:[id number]
--- NOTE | 2017-05-21 07:56 | RT STRESS TEST REPORT ---
[facility] PATIENT NAME: ANAT FARRIS : [id number] MR: [id number] V: [id number] EXAM DATE: ORDERING PHYSICIAN: DON MANCILLA TECHNOLOGIST: Doni Acquisition Time: 2017-05-20 14:10:55 Total Exercise Time: 00:01:00 Test Indications: Elevated Troponin Medications: see nuc med list Protocol: LEXISCAN Max HR: 090 BPM 58% of Pred: 153 BPM Max BP: 162/100 mmHG Max Work Load: 1.0 METS There was no chest pain or ST depression after the Lexiscan infusion. See the nuclear images for details. Confirmed by DON MANCILLA ([id number]) on 05/21/2017 7:55:28 AM Referred By: Don Mancilla Overread By: DON MANCILLA
== END ==
LOC: RAD 12:08
PROVIDERS: ATTEND Internal Medicine
DX: R79.89 Other specified abnormal findings of blood chemistry (principal); R94.31 Abnormal electrocardiogram [ECG] [EKG]
CPT/HCPCS: 78452; 93017; A9500; J2785

== ENCOUNTER → 2017-06-17 | Outpatient (CLI) | payer OTHER ==
[2017-05-17 14:29] VITALS: BMI 29.9
[~2017-06-17] MED LIST changes: +POTA20TA94 PO; -REGADENOSON 0.4 MG/5 ML SYR ONE; +VALS1TAB4 PO
== END ==
LOC: LAB 09:00
PROVIDERS: ATTEND Internal Medicine
DX: Z02.9 Encounter for administrative examinations, unspecified (principal)

== ENCOUNTER → 2017-07-12 | Outpatient (CLI) | payer OTHER ==
[2017-05-17 14:29] VITALS: BMI 29.9
[~2017-07-12] MED LIST changes: -VALS160T2 PO; +VALS160T7 PO
== END ==
LOC: LAB 08:08
PROVIDERS: ATTEND Internal Medicine Nephrology
DX: Z13.9 Encounter for screening, unspecified (principal)
CPT/HCPCS: 36415; 82040; 82088; 82310; 82374; 82384; 82435; 82565; 82947; 83835; 84100; 84132; 84156; 84244; 84295; 84443; 84520; 84550; 85027

== ENCOUNTER → 2017-08-12 | Outpatient (CLI) | payer OTHER ==
[2017-05-17 14:29] VITALS: BMI 29.9
--- NOTE | 2017-08-12 13:06 | RADIOLOGY IMAGING REPORT ---
FACILITY: [facility] [place]IENT NAME: Pete Colvin : 1950 MR: [id number] V: [id number] EXAM DATE: ORDERING PHYSICIAN: CHUY CHENG TECHNOLOGIST: Location: [facility] - [place] Patient: Pete Colvin : 1950 Visit/Account:[id number] Date of Sevice: 08/12/2017 CT ABDOMEN WITHOUT CONTRAST CLINICAL INFORMATION: Primary hyperaldosteronism TECHNIQUE: Axial CT images were obtained through the abdomen without administration of IV contrast. Reformatted coronal and sagittal images were also obtained. Dose Lowering Technique One of the following dose optimization techniques was utilized in the performance of this exam: Autom ated exposure control; adjustment of the mA and/or kV according to the patient's size; or use of an i terative reconstruction technique. Specific details can be referenced in the facility's radiology C T exam operational policy. COMPARISON: CT abdomen pelvis June 01, 2012 FINDINGS: Lower lung le: There is a 3 mm subpleural noncalcified nodule lateral aspect the lingula best see n on image five of series 5 is faintly seen on the prior study Evaluation of the solid organs of the abdomen is limited without IV contrast. Liver: 1 cm cyst in the liver dome unchanged Biliary: Gallbladder appears unremarkable as well as the intra and extra hepatic biliary system. Pancreas: Normal appearance. Spleen: Normal appearance. Adrenal glands: There is a 1 cm hypoattenuating nodule in the right adrenal gland with CT Hounsfield units of 1.7 likely representing an adenoma. This is unchanged in size when compared to the prior st y. There is mild thickening of the left adrenal gland also unchanged Kidneys / retroperitoneum: There is a lobular contour to both kidneys. Is a 3.5 cm cyst lower pole t he right kidney. There is a 1. One centimeters cyst upper pole of the left kidney Bowel / peritoneum / mesenteries: There is mild diverticulosis left-sided colon although no CT eviden ce of acute diverticulitis Lymph node assessment: No pathologic adenopathy identified. Vessels: Mild to moderate vascular calcifications throughout the abdomen and pelvis atherosclerotic c alcification seen throughout a nonaneurysmal abdominal aorta and branches. Musculoskeletal / Body wall: Spondylotic changes lumbar spine IMPRESSION: 1. There is a 1 cm hypoattenuating nodule in the right adrenal gland with CT Hounsfield units of 1.7 likely representing an adenoma. This unchanged in size when compared to the prior study Additional chronic findings as described Report Dictated By: Charlotte Le MD at 08/12/2017 11:38 AM Report E-Signed By: Charlotte Le MD at 08/12/2017 1:03 PM WSN:[email or web address]
== END ==
LOC: CT 08-04 01:46
PROVIDERS: ATTEND Internal Medicine Nephrology
DX: K76.89 Other specified diseases of liver (principal); R91.8 Other nonspecific abnormal finding of lung field; D35.00 Benign neoplasm of unspecified adrenal gland; N20.0 Calculus of kidney; I25.10 Atherosclerotic heart disease of native coronary artery without angina pectoris
CPT/HCPCS: 74150

== ENCOUNTER → 2017-08-26 | Outpatient (CLI) | payer OTHER ==
[2017-05-17 14:29] VITALS: BMI 29.9
== END ==
LOC: LAB 07:53
PROVIDERS: ATTEND Internal Medicine Nephrology
DX: E26.09 Other primary hyperaldosteronism (principal)
CPT/HCPCS: 36415; 82040; 82247; 82310; 82374; 82435; 82565; 82570; 82947; 84075; 84132; 84155; 84156; 84295; 84450; 84460; 84520

== ENCOUNTER → 2017-09-09 | Outpatient (CLI) | payer OTHER ==
[2017-05-17 14:29] VITALS: BMI 29.9
== END ==
LOC: LAB 07:49
PROVIDERS: ATTEND Internal Medicine Nephrology
DX: N18.3 Chronic kidney disease, stage 3 (moderate) (principal); E11.8 Type 2 diabetes mellitus with unspecified complications
CPT/HCPCS: 36415; 82310; 82374; 82435; 82565; 82947; 84132; 84295; 84520

== ENCOUNTER → 2017-10-26 | Outpatient (CLI) | payer OTHER ==
[2017-05-17 14:29] VITALS: BMI 29.9
== END ==
LOC: LAB 08:07
PROVIDERS: ATTEND Internal Medicine Nephrology
DX: E11.8 Type 2 diabetes mellitus with unspecified complications (principal); N18.3 Chronic kidney disease, stage 3 (moderate)
CPT/HCPCS: 36415; 82040; 82247; 82310; 82374; 82435; 82565; 82570; 82947; 84075; 84132; 84155; 84156; 84295; 84450; 84460; 84520

== ENCOUNTER → 2017-11-09 | Outpatient (CLI) | payer OTHER ==
[2017-05-17 14:29] VITALS: BMI 29.9
== END ==
LOC: LAB 08:00
PROVIDERS: ATTEND Internal Medicine Nephrology
DX: E26.9 Hyperaldosteronism, unspecified (principal); I10 Essential (primary) hypertension
CPT/HCPCS: 36415; 82310; 82374; 82435; 82565; 82947; 84132; 84295; 84520

== ENCOUNTER → 2018-01-14 | Outpatient (CLI) | payer OTHER ==
[2017-05-17 14:29] VITALS: BMI 29.9
[~2018-01-14] MED LIST changes: -VALS160T7 PO; +VALS160T8 PO
[2018-01-14 15:42] LABS: PLATELET COUNT, AUTOMATED 230 K/uL (150-450)
== END ==
LOC: LAB 15:22
PROVIDERS: ATTEND Internal Medicine Nephrology
DX: N18.3 Chronic kidney disease, stage 3 (moderate) (principal); E26.09 Other primary hyperaldosteronism; E87.5 Hyperkalemia; I15.2 Hypertension secondary to endocrine disorders
CPT/HCPCS: 36415; 82040; 82247; 82310; 82374; 82435; 82565; 82570; 82947; 84075; 84132; 84155; 84156; 84295; 84450; 84460; 84520; 85025

== ENCOUNTER → 2018-06-16 | Outpatient (CLI) | payer OTHER ==
[2017-05-17 14:29] VITALS: BMI 29.9
[~2018-06-16] MED LIST changes: +AMLO-127 PO; -AMLO-99 PO; -LOSA50TA72 PO; +LOSA50TA80 PO
== END ==
LOC: LAB 09:29
PROVIDERS: ATTEND Internal Medicine Nephrology
DX: E11.9 Type 2 diabetes mellitus without complications (principal); N18.3 Chronic kidney disease, stage 3 (moderate)
CPT/HCPCS: 36415; 82040; 82247; 82310; 82374; 82435; 82565; 82570; 82947; 83970; 84075; 84132; 84155; 84156; 84295; 84450; 84460; 84520

== ENCOUNTER → 2018-11-03 | Outpatient (CLI) | payer OTHER ==
[2017-05-17 14:29] VITALS: BMI 29.9
[~2018-11-03] MED LIST changes: +AMLO-125 PO; +ERGO500037 PO; +PNEU0.5D3 IM; +SPIR25TA80 PO
[2018-11-03 10:22] LABS: PLATELET COUNT, AUTOMATED 188 K/uL (150-450)
== END ==
LOC: LAB 09:44
PROVIDERS: ATTEND Internal Medicine
DX: I12.9 Hypertensive chronic kidney disease with stage 1 through stage 4 chronic kidney disease, or unspecified chronic kidney disease (principal); N18.3 Chronic kidney disease, stage 3 (moderate); E78.5 Hyperlipidemia, unspecified; E11.9 Type 2 diabetes mellitus without complications; Z00.00 Encounter for general adult medical examination without abnormal findings
CPT/HCPCS: 36415; 81001; 82040; 82043; 82247; 82306; 82310; 82374; 82435; 82465; 82565; 82947; 83036; 83718; 83970; 84075; 84132; 84153; 84155; 84295; 84443; 84450; 84460; 84478; 84520; 84550; 85025